=== PATIENT | female | born 2005 | race Hispanic/Latino ===

== ENCOUNTER 2025-02-17 07:27 | Emergency (ER) | payer BC ==
[~2025-02-17] VITALS: Ht 157.5 cm; Wt 42.0 kg
--- OUTSIDE RECORDS SUMMARY | 2025-02-17 07:32 | XMS ---
PreManage Notification: ODIN JACKSON Security Core Sucker Events No recent Security Events currently on file CRITERIA MET - [facility] - 2 Visits in 30 Days - [facility] - 3 Facilities in 90 Days CARE PROVIDERS VIJAY Silverman [facility] Current PHONE: Unknown BANDAR MAI Family [facility] Current PHONE: [phone] Sandra has no Care Guidelines for this patient. E.D. VISIT COUNT (12 MO.) 2 Radha Metzger [address] T[address] 4 NOTE: Visits indicate total known visits. ED/UCC VISIT TRACKING (12 MO.) 02/17/2025 07:27 [facility] TYPE: Emergency COMPLAINT: - VOMITING 02/16/2025 20:25 Jagdeep Sunitha [facility] TYPE: Emergency COMPLAINT: - Walk In_VOMITING LWBS 22:23 01/21/2025 11:55 Radha Helton RuyErnesto [place] TYPE: Emergency COMPLAINT: - Chills_Vomiting - NAUSEA - OTH SPEC PREG RELATED COND 1ST TRI - PELVIC AND PERINEAL PAIN DIAGNOSES: 0. Pelvic and perineal pain 1. Mild hyperemesis gravidarum 5. Other specified related conditions, first trimester 6. Unspecified abdominal pain 7. 8 weeks gestation of 01/19/2025 05:06 [facility] KENNEDI [place] TYPE: Emergency DIAGNOSES: - Vomiting During - vomiting, pt states she's preg, unsure how far. INPATIENT VISIT TRACKING (12 MO.) No inpatient visits to display in this time frame [email or web address]
[2025-02-17] MEDS ORDERED: SODIUM CHLORIDE 0.9% 1,000 ML IV PRN (07:45)
[2025-02-17] MEDS ORDERED: ondansetron HCL 4 MG/2 ML VIAL IV ONE ×2 (07:45→09:30)
[2025-02-17 07:49] LABS: BASOPHILS 0.1 % (0.1-1.2); EOSINOPHILS 0.1 % (0.7-5.8); HEMATOCRIT 30.5 % (34.1-44.9); HEMOGLOBIN 10.8 g/dL (11.2-15.7); MCH 29.9 PG (25.6-32.2); MCHC 35.4 g/dL (32.2-35.5); MCV 84.5 fL (79.4-94.8); MONOCYTES 3.2 % (4.7-12.5); NEUTROPHILS 90.1 % (34.0-71.1); PLATELET COUNT 256 K/uL (182-369); RBC 3.61 M/uL (3.93-5.22)
[2025-02-17] MEDS ORDERED: ONDANSETRON ODT4 MG PO (07:50)
[2025-02-17 08:09] LABS: ALBUMIN 3.7 g/dL (3.4-5.0); ALBUMIN/GLOBULIN RATIO 1.06 (1.1-2.4); ANION GAP 13.4 (7-21); BILIRUBIN, TOTAL 0.4 mg/dL (0.2-1.0); BUN/CREATININE RATIO 18.03 (6.0-28.6); CALCIUM 9.6 mg/dL (8.5-10.1); CREATININE, SERUM 0.61 mg/dL (0.55-1.02); POTASSIUM 3.4 mmol/L (3.5-5.1); PROTEIN, TOTAL 7.2 g/dL (6.4-8.2)
[2025-02-17 09:08] LABS: BILIRUBIN, URINE NEGATIVE (negative); BLOOD/HGB, URINE TRACE-I (Negative); KETONE, URINE SMALL (Negative); LEUK ESTERASE, URINE NEGATIVE (negative); NITRITE, URINE NEGATIVE (negative)
[2025-02-17 09:24] LABS: BACTERIA, URINE RARE /hpf (negative); CASTS, URINE NONE SEEN \\lpf; COLLECTION TYPE, URINE CLEAN CATCH; CRYSTALS, URINE NONE SEEN (0-1+); EPITHELIAL CELLS, URINE SQUAMOUS 2+ /lpf (0-1+); REFLEX CULTURE, URINE No (No); WHITE BLOOD CELLS, URINE 0-1 /HPF (0-5)
[2025-02-17 09:45] VITALS: BP 104/68
== END 2025-02-17 09:45 | disposition home or self-care (01) ==
LOC: ED 07:27
PROVIDERS: Emergency Medicine
DX: O21.9 Vomiting of pregnancy, unspecified (principal); Z3A.10 10 weeks gestation of pregnancy
CPT/HCPCS: 36415; 80053; 81001; 85025; 96361; 96374; 96376; 99284-25; J2405; J7030

== ENCOUNTER 2025-06-16 19:39 | Emergency (ER) | payer BC, OTHER ==
[~2025-06-16] VITALS: Ht 157.5 cm; Wt 47.0 kg
[~2025-06-16 19:39] MED LIST: ONDANSETRON ODT4 MG PO
[2025-06-16 20:20] LABS: BASOPHILS 0.1 % (0.1-1.2); EOSINOPHILS 0.1 % (0.7-5.8); LYMPHOCYTES 6.5 % (19.3-51.7); MCH 28.4 PG (25.6-32.2); MCHC 33.6 g/dL (32.2-35.5); MCV 84.6 fL (79.4-94.8); MONOCYTES 1.4 % (4.7-12.5); NEUTROPHILS 91.4 % (34.0-71.1); RBC 3.56 M/uL (3.93-5.22)
[2025-06-16 20:31] LABS: GLOMERULAR FILTRATION RATE,EST 141.0 mL/min (>60); UREA NITROGEN 4.0 mg/dL (7-18)
[2025-06-16 20:42] VITALS: BP 101/61
== END 2025-06-16 20:41 | disposition home or self-care (01) ==
LOC: ED 19:39
PROVIDERS: Emergency Medicine
DX: O21.9 Vomiting of pregnancy, unspecified (principal); Z3A.29 29 weeks gestation of pregnancy
CPT/HCPCS: 80048; 85025

== ENCOUNTER 2025-08-18 11:54 | Inpatient (IN) | payer BC, OTHER ==
--- OUTSIDE RECORDS SUMMARY | ~2025-08-18 | XMS | Continuity of Care Document ---
Demographics + + + | Address | [address] | | | [place] [address] | + + + | Preferred Language | Unknown | + + + | Marital Status | Never | + + + | Advent Affiliation | Unknown | + + + | Race | Unknown | + + + | Ethnic Group | or | + + + Author + + + | Author | [place] | + + + | Organization | [place] | + + + | Address | [address] | | | [place] [address] | + + + | Phone | | + + + Care Team Providers + + + + | Care Journalism Teacher Name | Role | Phone | + + + + Unavailable | Unavailable | + + + + Unavailable | Unavailable | + + + + Allergies No information. Encounters No information. Functional Status No information. Immunizations No information. Medications No information. Problems + + + + | date | description | facility | + + + + | 2025-06-16 00:00 | Encounter for medical | [facility] | | | screening examination | [facility] | + + + + Procedures No information. Results/Labs +--------+--------+ +---------+--------+---------+ | test | date | facility | value | unit | notes | +--------+--------+ +---------+--------+---------+ + + | Result panel 1 | + + + + + +---------+ + + | WBC # Bld | 2025-06-16 | | 14.22 | (missing) | (missing) | | Auto | 20:15:07 | [facility] | | | + + + +---------+ + + + + | Result panel 2 | + + + + + +-------+ + + | Lymphocytes | 2025-06-16 | | 6.5 | (missing) | (missing) | | NFr Bld | 20:15:07 | [facility] | | | | | Auto | [facility] | | | | + + + +-------+ + + + + | Result panel 3 | + + + + + +-------+ + + | Monocytes | 2025-06-16 | | 1.4 | (missing) | (missing) | | NFr Bld Auto | 20:15:07 | [facility] | | | | | | [facility] - [facility] | | | | + + + +-------+ + + + + | Result panel 4 | + + + + + +-------+ + + | Eosinophil | 2025-06-16 | | 0.1 | (missing) | (missing) | | NFr Bld Auto | 20:15:07 | [facility] | | | | + + + +-------+ + + + + | Result panel 5 | + + + + + +-------+ + + | Basophils | 2025-06-16 | | 0.1 | (missing) | (missing) | | NFr Bld Auto | 20:15:07 | [facility] | | | [facility] - [facility] | | | | + + + +-------+ + + + + | Result panel 6 | + + + + + +-------+---------+ + | Glucose | 2025-06-16 | | 127 | mg/dL | (missing) | | SerPl-mCnc | 20:15:07 | [facility] | | | | + + + +-------+---------+ + + + | Result panel 7 | + + + + + +-----+---------+ + | BUN | 2025-06-16 | | 4 | mg/dL | (missing) | | SerPl-mCnc | 20:15:07 | [facility] | | | | + + + +-----+---------+ + + + | Result panel 8 | + + + + + +--------+---------+ + | Creat | 2025-06-16 | | 0.45 | mg/dL | (missing) | | SerPl-mCnc | 20:15:07 | [facility] | | | | + + + +--------+---------+ + + + | Result panel 9 | + + + + + +-------+ + + | eGFRcr | 2025-06-16 | | 141 | (missing) | (missing) | | SerPlBld | 20:15:07 | [facility] | | | | | CKD-EPI 2020 | [facility] | | | | + + + +-------+ + + + + | Result panel 10 | + + + + + +--------+ + + | BUN/Creat | 2025-06-16 | | 8.88 | (missing) | (missing) | | SerPl | 20:15:07 | [facility] | | | | + + + +--------+ + + + + | Result panel 11 | + + + + + +-------+ + + | Sodium | 2025-06-16 | | 133 | (missing) | (missing) | | SerPl-[facility] | 20:15:07 | [facility] | | | | + + + +-------+ + + + + | Result panel 12 | + + + + + +--------+ + + | RBC # Bld | 2025-06-16 | | 3.56 | (missing) | (missing) | | Auto | 20:15:07 | [facility] | | | | [facility] - [facility] | | | | + + + +--------+ + + + + | Result panel 13 | + + + + + +-------+ + + | Potassium | 2025-06-16 | | 3.2 | (missing) | (missing) | | SerPl-sCnc | 20:15:07 | [facility] | | | | + + + +-------+ + + + + | Result panel 14 | + + + + + +------+ + + | Chloride | 2025-06-16 | | 99 | (missing) | (missing) | | SerPl-sCnc | 20:15:07 | [facility] | | | | + + + +------+ + + + + | Result panel 15 | + + + + + +------+ + + | CO2 | 2025-06-16 | | 18 | (missing) | (missing) | | SerPl-sCnc | 20:15:07 | [facility] | | | | + + + +------+ + + + + | Result panel 16 | + + + + + +--------+ + + | Anion Gap | 2025-06-16 | | 19.2 | (missing) | (missing) | | SerPl | 20:15:07 | [facility] | | | | | Calculated.4 | [facility] | | | | + + + +--------+ + + + + | Result panel 17 | + + + + + +-------+---------+ + | Calcium | 2025-06-16 | | 8.9 | mg/dL | (missing) | | SerPl-mCnc | 20:15:07 | [facility] | | | | + + + +-------+---------+ + + + | Result panel 18 | + + + + + +--------+ + + | Hgb | 2025-06-16 | | 10.1 | (missing) | (missing) | | Bld-mCnatacha | 20:15:07 | [facility] | | | | + + + +--------+ + + + + | Result panel 19 | + + + + + +--------+ + + | Hct VFr.DF | 2025-06-16 | | 30.1 | (missing) | (missing) | | Bld Auto | 20:15:07 | [facility] | | | | + + + +--------+ + + + + | Result panel 20 | + + + + + +--------+ + + | RBC Auto | 2025-06-16 | | 84.6 | (missing) | (missing) | | | 20:15:07 | [facility] | | | | + + + +--------+ + + + + | Result panel 21 | + + + + + +--------+ + + | MCH RBC Qn | 2025-06-16 | | 28.4 | (missing) | (missing) | | Auto | 20:15:07 | [facility] | | | | + + + +--------+ + + + + | Result panel 22 | + + + + + +--------+ + + | MCHC RBC | 2025-06-16 | | 33.6 | (missing) | (missing) | | Auto-EntMCnc | 20:15:07 | [facility] | | | | + + + +--------+ + + + + | Result panel 23 | + + + + + +-------+ + + | Platelet # | 2025-06-16 | | 254 | (missing) | (missing) | | Bld Auto | 20:15:07 | [facility] | | | | + + + +-------+ + + + + | Result panel 24 | + + + + + +--------+ + + | Neutrophils | 2025-06-16 | | 91.4 | (missing) | (missing) | | NFr Bld | 20:15:07 | [facility] | | | | [facility] | | | | + + + +--------+ + + Social History + + + + | date | description | facility | + + + + | (no date) | Unknown if ever smoked | [facility] | | | | [facility] | + + + + Vital Signs + + + +---------+ | date | measurement | value | units | + + + +---------+ | 2025-06-16 00:00 | BMI | 19.0 | kg/m2 | + + + +---------+ | 2025-06-16 00:00 | BP_diastolic | 76 | mmHg | + + + +---------+ | 2025-06-16 00:00 | BP_systolic | 117 | mmHg | + + + +---------+ | 2025-06-16 00:00 | heart_rate | 75 | /min | + + + +---------+ | 2025-06-16 00:00 | height_metric | 157.48 | cm | + + + +---------+ | 2025-06-16 00:00 | height_standard | 62 | in | + + + +---------+ | 2025-06-16 00:00 | o2_saturation | 99 | % | + + + +---------+ | 2025-06-16 00:00 | respiration_rate | 18 | /min | + + + +---------+ | 2025-06-16 00:00 | | 98.6 | F | | | temperature_standar | | | | | d | | | + + + +---------+ | 2025-06-16 00:00 | weight_metric | 47.001 | kg | + + + +---------+ | 2025-06-16 00:00 | weight_standard | 103.618 | lb | + + + +---------+"
[2025-08-18] MEDS ORDERED: LACTATED RINGER'S 1,000 ML IV ONE (13:00)
[2025-08-18] MEDS ORDERED: OXYTOCIN/0.9 % SODIUM CHLORIDE 30 UNITS/500 ML BAG IV SCH (16:15)
[2025-08-18] MEDS ORDERED: TERBUTALINE SULFATE 1 MG/ML AMP SUB-Q PRN (16:15)
[2025-08-18] MEDS ORDERED: PENICILLIN G POTASSIUM 5 MUNITS in SODIUM CHLORIDE 0.9% 100 ML IV ONE (16:15)
[2025-08-18] MEDS ORDERED: LACTATED RINGER'S 1,000 ML IV PRN (16:15)
[2025-08-18] MEDS ORDERED: MAGNESIUM HYDROXIDE/AL HYDROX 30 ML CUP PO PRN ×2 (16:15→22:45)
[2025-08-18] MEDS ORDERED: CALCIUM CARBONATE 500 MG CHEW PO PRN ×2 (16:15→22:45)
[2025-08-18] MEDS ORDERED: LIDOCAINE HCL 1% 30 ML SDV INJ PRN (16:15)
[2025-08-18 16:29] LABS: MCH 25.8 PG (25.6-32.2); MCHC 32.4 g/dL (32.2-35.5); MCV 79.7 fL (79.4-94.8); RBC 4.38 M/uL (3.93-5.22)
[2025-08-18] MEDS ORDERED: LACTATED RINGER'S 500 ML IV PRN (17:00)
[2025-08-18] MEDS ORDERED: LACTATED RINGER'S 2,000 ML IV ONE (17:00)
[2025-08-18] MEDS ORDERED: ePHEDrine sulfate 5 MG/ML SYRINGE IV PRN (17:00)
[2025-08-18] MEDS ORDERED: ROPIVACAINE 0.2% 200 ML BAG EPIDURAL SCH (17:00)
[2025-08-18 17:01] LABS: ABO B
[2025-08-18 17:02] LABS: RH POSITIVE
[2025-08-18 17:04] LABS: ANTIBODY SCREEN NEGATIVE
[2025-08-18] MEDS ORDERED: Ropivacaine HCl 0.5% 30 ML VIAL ONE (17:04)
[2025-08-18] MEDS ORDERED: fentaNYL citrate 100 MCG/2 ML VIAL ONE (17:05)
[2025-08-18] MEDS ORDERED: LIDOCAINE HCL 2% 5 ML SDV ONE (20:12)
[2025-08-18] MEDS ORDERED: PENICILLIN G POTASSIUM 2.5 MUNITS in SODIUM CHLORIDE 0.9% 100 ML IV SCH (20:15)
[2025-08-18] MEDS ORDERED: HYDROCORTISONE ACETATE 25 MG SUPP PR PRN (22:45)
[2025-08-18] MEDS ORDERED: OXYTOCIN/0.9 % SODIUM CHLORIDE 500 ML IV SCH (22:45)
[2025-08-18] MEDS ORDERED: WITCH HAZEL/GLYCERIN 1 EA PAD TOP PRN (22:45)
[2025-08-18] MEDS ORDERED: HYDROCODONE/ACETA 5/325 TAB PO PRN (22:45)
[2025-08-18] MEDS ORDERED: IBUPROFEN 600 MG TAB PO PRN (22:45)
[2025-08-18] MEDS ORDERED: BENZOCAINE 60 ML AEROSOL TOP PRN (22:45)
[2025-08-18] MEDS ORDERED: OXYCODONE/APAP 5/325 TAB PO PRN (22:45)
[2025-08-18] MEDS ORDERED: ACETAMINOPHEN 325 MG TAB PO PRN (22:45)
[2025-08-18] MEDS ORDERED: MAGNESIUM HYDROXIDE 30 ML UDC PO PRN (22:45)
[2025-08-19 05:37] LABS: MCH 25.9 PG (25.6-32.2); MCHC 32.7 g/dL (32.2-35.5); MCV 79.0 fL (79.4-94.8); RBC 3.48 M/uL (3.93-5.22)
[2025-08-19] MEDS ORDERED: SENNOSIDES/DOCUSATE 1 EA TAB PO SCH (09:00)
--- NOTE | 2025-08-19 12:35 | PR ---
[facility] [address] [place], [place] [address] Signed PP Progress Notes Datetime Report Generated by CPN: 08/19/2025 12:35 SUBJECTIVE: [id number] Pain: Within Normal Limits Nausea/Vomiting: Denies Flatus: Yes Bowel Movement: No Vital Signs: [id number] Vital Signs: Reviewed; Within Normal Limits Cardiovascular: Normal Respiratory: Normal Abdomen/Uterus: Normal Lochia: Normal Vulva/Perineum: Not Done Breasts: Not Done CVA Tenderness: Normal Extremities: Normal Incision: Not Applicable Progress: Normal Exam Comments: Fundus firm U-2 nontender IMPRESSION/PLAN/PROCEDURES: [id number] Impression: Normal Progression Plan: Continue Present Management Progress Notes: Pt seen and examined. Doing well. Ambulating, voiding, and tolerating full diet. No concerns. Anticipate d/c home tomorrow. Signing Physician: Viola Mack DO Copies: ~ *Electronically Signed* 08/19/25 9305 VIOLA MACK (JOSEPHINE) DO PATIENT NAME: ODIN JACKSON PROGRESS NOTE DATE OF : 04 PHYSICIAN: VIOLA MACK (JOSEPHINE) DO RPT #: [id number] REPORT IS CONFIDENTIAL AND NOT TO BE RELEASED WITHOUT AUTHORIZATION
--- NOTE | 2025-08-20 08:55 | PR ---
[facility] [address] [place], [place] [address] Signed PP Progress Notes Datetime Report Generated by CPN: 08/20/2025 08:55 Pain: Within Normal Limits Nausea/Vomiting: Denies Flatus: Yes Bowel Movement: No Vital Signs: Reviewed; Within Normal Limits Cardiovascular: Normal Respiratory: Normal Abdomen/Uterus: Normal Lochia: Normal Vulva/Perineum: Not Done Breasts: Not Done CVA Tenderness: Normal Extremities: Normal Incision: Not Applicable Progress: Normal Exam Comments: Fundus firm U-2 nontender Impression: Normal Progression Plan: Discharge Procedures: None Progress Notes: Pt seen and examined. Doing well. Ambulating, voiding, and tolerating full diet. Pain and lochia minimal. w/ some latching difficulty. No other questions or concerns. Desires d/c home. Reviewed d/c instructions / medications. Return for support if needed. F/U 6 wk pp visit in office. Undecided on pp contraception. Signing Physician: Viola Mack DO Copies: ~ *Electronically Signed* 08/20/25 0867 VIOLA MACK (JOSEPHINE) DO PATIENT NAME: ODIN JACKSON PROGRESS NOTE DATE OF : 04 PHYSICIAN: VILOA MACK) DO RPT #: [id number] REPORT IS CONFIDENTIAL AND NOT TO BE RELEASED WITHOUT AUTHORIZATION
== END 2025-08-20 12:50 | disposition home or self-care (01) | DRG 806 ==
LOC: FBCO 11:54 → FBC 16:19
PROVIDERS: ADMIT Obstetrics & Gynecology; ATTEND Obstetrics & Gynecology
PROC: 10E0XZZ Delivery of Products of Conception, External Approach (ICD-10-PCS; principal; 2025-08-18)
PROC: 3E0R3BZ Introduction of Anesthetic Agent into Spinal Canal, Percutaneous Approach (ICD-10-PCS; 2025-08-18)
PROC: 00HU33Z Insertion of Infusion Device into Spinal Canal, Percutaneous Approach (ICD-10-PCS; 2025-08-18)
DX: O99.824 Streptococcus B carrier state complicating childbirth (principal); D62 Acute posthemorrhagic anemia; Z37.0 Single live birth; O71.82 Other specified trauma to perineum and vulva; O99.324 Drug use complicating childbirth; F12.90 Cannabis use, unspecified, uncomplicated; Z3A.38 38 weeks gestation of pregnancy
CPT/HCPCS: 01960; 36415; 85027; 86850; 86900; 86901; A9270; G0463; J2003; J2405; J2540; J2795; J3010; J3105; J7121